=== PATIENT | male | born 1970 | race Caucasian/White ===

== ENCOUNTER 2019-04-14 13:24 | Emergency (ER) | payer MEDICAID ==
[~2019-04-14] VITALS: Ht 182.9 cm; Wt 131.5 kg
[~2019-04-14 13:24] MED LIST: ACTOS PO
[2019-04-14 13:49] VITALS: BP_SYST 114
[2019-04-14] MEDS ORDERED: SULFAMETHOXAZOLE/TRIMETHOPR DS 1 TABLET PO ONE (16:00)
[2019-04-14] MEDS ORDERED: LIDOCAINE/EPI 1% 1:100000 20 ML VIAL INJ ONE (16:00)
[2019-04-14] MEDS ORDERED: DIPH-TET-PERTUS Vaccine 0.5 ML VIAL (ADACEL) I.M. ONE (16:00)
[2019-04-14] MEDS ORDERED: BACITRACIN 1 GM OINT TP ONE (16:21)
[2019-04-14 16:30] VITALS: BP_SYST 111
== END 2019-04-14 16:30 | disposition home or self-care (01) ==
LOC: SED 13:24
DX: S91.311A Laceration without foreign body, right foot, initial encounter (principal); E11.9 Type 2 diabetes mellitus without complications; Z88.0 Allergy status to penicillin; W25.XXXA Contact with sharp glass, initial encounter; Y93.89 Activity, other specified; Y92.89 Other specified places as the place of occurrence of the external cause; Y99.8 Other external cause status
CPT/HCPCS: 90715; 99283

== ENCOUNTER 2021-04-02 00:18 | Emergency (ER) | payer MEDICAID ==
[~2021-04-02] VITALS: Ht 182.9 cm; Wt 117.9 kg
[2021-04-02 01:17] VITALS: BP_SYST 115
[2021-04-02] MEDS ORDERED: cefTRIAXone 1 GM in D5W 50 ML IV ONE (03:00)
[2021-04-02] MEDS ORDERED: CLINDAMYCIN 600 mg/50mL D5W 50 ML IV ONE (03:00)
[2021-04-02] MEDS ORDERED: cefTRIAXone 1 GM VIAL ONE (03:07)
[2021-04-02] MEDS ORDERED: CLIN300C12 PO (03:31)
[2021-04-02] MEDS ORDERED: IBUP-1969 PO (03:31)
[2021-04-02] MEDS ORDERED: HYDR-3917 PO (03:31)
[2021-04-02 03:32] LABS: BASOPHILS # (AUTO) 0.1 K/uL (0.0-0.2); BASOPHILS % (AUTO) 0.8 % (0.0-2.0); EOSINOPHILS # (AUTO) 0.3 K/uL (0.0-0.4); EOSINOPHILS % (AUTO) 2.7 % (0.0-4.0); HEMATOCRIT 36.8 % (36-54); HEMOGLOBIN 12.8 g/dL (14.0-18.0); LYMPHOCYTES # (AUTO) 2.1 K/uL (1.0-5.5); LYMPHOCYTES % (AUTO) 21.4 % (20.5-51.5); MEAN CORPUSCULAR HEMOGLOBIN 31 pg (27-31); MEAN CORPUSCULAR HGB CONC 35 % (32-36); MEAN CORPUSCULAR VOLUME 89 fL (79.0-98.0); MONOCYTES # (AUTO) 0.8 K/uL (0.0-1.0); NEUTROPHILS # (AUTO) 6.7 K/uL (1.8-7.7); NEUTROPHILS % (AUTO) 67.1 % (40.0-70.0); PLATELET COUNT (AUTO) 304 K/uL (130-430); RED BLOOD CELL COUNT(AUTO) 4.12 MIL/uL (4.2-6.2); RED CELL DISTRIBUTION WIDTH 12.8 % (9.0-15.0)
[2021-04-02 03:38] LABS: CALCIUM 8.8 mg/dL (8.4-11.0); CREATININE 0.87 mg/dL (0.55-1.30); POTASSIUM 3.6 mmol/L (3.5-5.1)
[2021-04-02 03:42] VITALS: BP_SYST 125
== END 2021-04-02 03:42 | disposition home or self-care (01) ==
LOC: SED 00:18
DX: L03.116 Cellulitis of left lower limb (principal); E11.9 Type 2 diabetes mellitus without complications; Z88.0 Allergy status to penicillin
CPT/HCPCS: 36415; 80048; 85025; 96365; 96368; 99284; J0696; J3490